=== PATIENT | male | born 1960 | race Two or more races ===

== ENCOUNTER 2025-02-16 11:47 | Emergency (ER) | payer OTHER ==
[~2025-02-16] VITALS: Ht 170.2 cm; Wt 90.7 kg
[2025-02-16] MEDS ORDERED: METFORMIN HCL500 M3 PO (12:13)
[2025-02-16] MEDS ORDERED: ROSUVASTATIN CAL5 MG PO (12:14)
[2025-02-16] MEDS ORDERED: ORPHENADRINE CITRATE 30 MG/ML AMPUL IM ONE (13:45)
[2025-02-16] MEDS ORDERED: KETOROLAC TROMETHAMINE 30 MG VIAL IU ONE (13:45)
[2025-02-16] MEDS ORDERED: DEXAMETHASONE SODIUM PHOSPHATE 4 MG/ML VIAL IV ONE (13:45)
[2025-02-16] MEDS ORDERED: ACETAMINOPHEN 500 MG GEL..CAP PO ONE ×3 (13:45→14:47)
[2025-02-16] MEDS ORDERED: 0.9 % SODIUM CHLORIDE 1,000 ML IV SCH (13:45)
[2025-02-16] MEDS ORDERED: FAMOtidine 10 MG/ML (4ML VIAL) IV PUSH ONE (13:45)
[2025-02-16] MEDS ORDERED: KETOROLAC TROMETHAMINE 30 MG VIAL ONE (14:03)
[2025-02-16] MEDS ORDERED: ORPHENADRINE CITRATE 30 MG/ML AMPUL ONE (14:03)
[2025-02-16] MEDS ORDERED: FAMOTIDINE/PF 20 MG/2 ML VIAL ONE (14:03)
[2025-02-16] MEDS ORDERED: DEXAMETHASONE SODIUM PHOSPHATE 4 MG/ML VIAL ONE (14:03)
[2025-02-16 15:18] LABS: BASO % 0.4 % (0.1-1.2); EOS # 0.03 (0.04-0.54); EOS % 0.2 % (0.7-7.0); LYMPH # 2.22 (1.18-3.74); LYMPH % 18.2 % (19.3-53.1); MEAN PLATELET VOLUME 9.80 fl (9.4-12.4); MONO # 1.27 (0.24-0.82); MONO % 10.4 % (4.7-12.5); NEUT # 8.57 (1.56-6.13); NEUT % 70.3 % (34.0-71.1); RED CELL DISTRIBUTION WIDTH 12.4 % (11.6-14.4)
[2025-02-16 15:32] LABS: ERYTHROCYTE SEDIMENTATION RATE 72 mm/hr (0-20)
[2025-02-16 15:38] LABS: INR 1.01
[2025-02-16 15:46] LABS: ALT/SGPT 30.0 U/L (12-78); AST/SGOT 14.0 U/L (15-37); BILIRUBIN TOTAL 1.0 mg/dL (0.3-1.2); BUN CREA RATIO 21.0 (7.0-25.0); CREATININE SERUM 1.03 mg/dL (0.70-1.30); GFR 72.94; GLOBULINA 4.1 G/DL (2.4-3.5); GLUCOSE FASTING 112.0 mg/dL (65-100); OSMOLALITY SERUM 276.0 MOSM/KG (275-295); PHOSPHOKINASE CREATININE 61.0 U/L (39-308)
[2025-02-16] MEDS ORDERED: CEFTRIAXONE SODIUM 1,000 MG VIAL IV ONE (17:45)
[2025-02-16] MEDS ORDERED: CEFTRIAXONE SODIUM 1,000 MG VIAL ONE (17:49)
[2025-02-16] MEDS ORDERED: AZITHROMYCIN500 MG PO (19:08)
[2025-02-16] MEDS ORDERED: PEPCID AC20 MG PO (19:08)
[2025-02-16 19:14] LABS: URINE APPEARANCE Clear; URINE BILIRRUBIN Negative (NEGATIVE); URINE BLOOD Negative; URINE COLOR Yellow; URINE GLUCOSE Negative (NEGATIVE); URINE KETONE Negative (NEGATIVE); URINE LEUKOCYTE Negative; URINE NITRATE Negative; URINE PROTEIN 30 (NEGATIVE); URINE UROBILINOGEN 1.0 E.U./dl
[2025-02-16 19:17] LABS: URINE BACTERIA 7.2 uL (0.0-1933); URINE EPITHELIAL CELLS 2.6 uL (0.0-38.8); URINE RBC 8.3 uL (0.0-20.8); URINE WBC 7.8 uL (0.0-23.2)
[2025-02-16 19:26] LABS: URINE CAST 0.43 uL (0.0-1.40)
[2025-02-16 20:12] LABS: COVID-19 AG NEGATIVE (NEGATIVE)
== END 2025-02-16 20:16 | disposition home or self-care (01) ==
LOC: ER 11:47
PROVIDERS: General Practice
DX: E86.0 Dehydration (principal); N28.1 Cyst of kidney, acquired; K76.89 Other specified diseases of liver; M54.89 Other dorsalgia; Z20.822 Contact with and (suspected) exposure to COVID-19; E11.9 Type 2 diabetes mellitus without complications; Z79.84 Long term (current) use of oral hypoglycemic drugs

== ENCOUNTER 2025-02-18 11:17 | Emergency (ER) | payer OTHER ==
[~2025-02-18] VITALS: Ht 172.7 cm; Wt 90.7 kg
[~2025-02-18 11:17] MED LIST: AZITHROMYCIN500 MG PO; METFORMIN HCL500 M3 PO; PEPCID AC20 MG PO; ROSUVASTATIN CAL5 MG PO
[2025-02-18 12:13] VITALS: BP 164/95; O2SAT 98
[2025-02-18] MEDS ORDERED: DEXAMETHASONE SODIUM PHOSPHATE 4 MG/ML VIAL IM ONE (13:00)
[2025-02-18] MEDS ORDERED: ORPHENADRINE CITRATE 30 MG/ML AMPUL IM ONE (13:00)
[2025-02-18] MEDS ORDERED: KETOROLAC TROMETHAMINE 60 MG VIAL IM ONE ×2 (13:00→13:15)
[2025-02-18] MEDS ORDERED: AMRIX15 MG PO (13:09)
[2025-02-18] MEDS ORDERED: NAPROXEN500 MG PO (13:09)
[2025-02-18] MEDS ORDERED: ORPHENADRINE CITRATE 30 MG/ML AMPUL ONE (13:15)
[2025-02-18] MEDS ORDERED: DEXAMETHASONE SODIUM PHOSPHATE 4 MG/ML VIAL ONE (13:15)
== END 2025-02-18 13:36 | disposition home or self-care (01) ==
LOC: ER 11:18
DX: M54.59 Other low back pain (principal)